=== PATIENT | female | born 1965 | race Caucasian/White ===

== ENCOUNTER 2016-06-07 16:56 | Emergency (ER) | payer OTHER ==
[~2016-06-07] VITALS: Ht 167.6 cm; Wt 118.2 kg
[2016-06-07 17:07] VITALS: BP 196/82; PULSE 70; RESP 16; O2SAT 98
--- NOTE | 2016-06-07 18:05 | ED.REPORT ---
HPI-Headache Date of Service Jun 07, 2016 ED Provider: Isidro Velásquez MD Patient is a 51 year old female w/ a hx of anxiety and HTN who reports to the ED with a constant, right sided headache for the last 2 to 3 months. She noticed when she brushes her hair her "head is very tender." She describes the pain as, "tingly and achy." Associates intermittent nausea. She noticed a similar pain 10 years ago when she had Laser eye surgery. She was going to go to today but they were closed. She reports she checked her symptoms online and became nervous. Pt struggles with anxiety regularly. She takes Atenolol (1x/ day, 25mg). She denies fever, numbness, weakness, chest pain, and jaw pain. She took Ibuprofen [employer] which helped decrease her symptoms slightly, but not significantly. Her blood pressure at the ED is 184/104. Dr. Alondra Johnson is her PCP. Nursing Notes Stated Complaint: HEADACHE/TENDER SCALP Chief Complaint: Headache Nursing Notes Reviewed: Yes Allergies: Coded Allergies: cephalexin (Verified Allergy, Intermediate, sun burn type rash, 06/07/16) erythromycin base (Verified Allergy, Intermediate, sun burn type rash, 06/07) Scheduled Gabapentin (Gabapentin) 300 Mg Capsule 300 MG PO TID General Time Seen by MD: 18:05 Chief Complaint Headache Hx Obtained From: Patient Arrived By: Walk-in Sudden in Onset?: Yes Onset Occurred: More than a week ago... (2 months) Symptom Duration: Since onset Location: : Occipital right Severity: Current: Mild Past Medical History Past Medical History anxiety Reports: Hypertension Past Surgical History Reports: Hysterectomy Smoking History Unknown if Ever Smoker Social History Other Social History: , Local resident Ambulatory Status Independent Review of Systems Review of Systems Note: no jaw claudication Constitutional: Denies: Fever GI: Reports: Nausea Neurologic: Reports: Headache, Denies: Numbness Psychiatric: Reports: Anxiety Complete sys rev & neg: except as marked. Cardiovascular: Denies: Chest pain Physical Exam Physical Exam Notes: blood pressure 184/104 on initial evaluation Initial Vital Signs Vital Signs (First) Date Time Temp Pulse Resp B/P Pulse Ox O2 Delivery O2 Flow Rate FiO2 06/07/16 17:07 36.5 70 16 196/82 98 Room Air Initial VS: Reviewed ENT: Mucous membranes moist, Conjunctiva normal, No scleral icterus Respiratory: Breath sounds normal, Clear to auscultation, No respiratory distress Abdomen / GI: Soft, Non-tender, No guarding, No rebound, No distention Back: No CVA tenderness Lymphatic: No lymphadenopathy Extremities: Vascular intact, Neuro intact, No swelling, No tenderness General/Constitutional: Awake, Alert, No acute distress, Cooperative, Not toxic appearing Head / Eyes: Atraumatic, Normocephalic, PERRL, EOMI, No nystagmus, No periorbital swelling, No photophobia, No scleral icterus, Conjunctiva NL, Temporal arteries NL Neck: Atraumatic, Supple, No meningismus, Full range of motion, No adenopathy, No swelling, Non-tender, No midline vertebral tend Neurologic: Oriented X3, Speech NL, No motor deficits, No sensory deficits, CN II - XII intact, Reflexes equal bilat normal tandem walk external movements intact ENT: Atraumatic, Airway patent, Mucous membranes moist, Pharynx NL, Tympanic membs NL, Ext aud canal NL Skin: Atraumatic, Color NL, No rash Interpretation & Diagnostics Lab Results Interpretation Result Diagram: 06/07/16192706/07/161927 Test 06/07/16 19:28 06/07/16 19:30 White Blood Count 9.7th/mm3 (3.8-10.1) Red Blood Count 4.86mil/mm3 (3.90-5.20) Hemoglobin 14.9g/dL (12.0-15.6) Hematocrit 43.9% (35.0-46.0) Mean Corpuscular Volume 90.3fL (81-100) Mean Corpuscular Hemoglobin 30.7pg (27.0-35.0) Mean Corpuscular Hemoglobin Concent 33.9% (32.0-37.0) Red Cell Distribution Width 12.3% (12.3-15.4) Platelet Count 226bil/L (150-400) Neutrophils (%) (Auto) 63.9% (40-74) Lymphocytes (%) (Auto) 25.4% (14-46) Monocytes (%) (Auto) 7.6% (4-12) Eosinophils (%) (Auto) 2.8% (0-5) Basophils (%) (Auto) 0.2% (0-3) Erythrocyte Sedimentation Rate 17mm/hr (0-32) Sodium Level 136mEq/L (134-144) Potassium Level 3.5mEq/L (3.5-5.2) Chloride Level 97mEq/L (97-108) Carbon Dioxide Level 23mmol/L (18-29) Blood Urea Nitrogen 10mg/dL (6-24) Creatinine 0.59mg/dL (0.57-1.00) Estimat Glomerular Filtration Rate 155mL/min (>59) Glucose Level 122mg/dL (60-99) Calcium Level 9.7mg/dL (8.5-10.1) Total Bilirubin 0.3mg/dL (0.0-1.2) Aspartate Amino Transf (AST/SGOT) 63U/L (0-50) Alanine Aminotransferase (ALT/SGPT) 88U/L (0-32) Alkaline Phosphatase 79U/L (25-150) Troponin T < 0.010ug/L (0.0-0.011) Total Protein 7.2g/dL (6.4-8.4) Albumin 3.9g/dL (3.4-5.0) Hold Garcia Top Tube Received (Received) Hold Urine Received (Received) ECG Interpretation ECG Interpretation: sinus rhythm (rate 70) w/ LVH Time: 19:57 Interpreted by: ED physician CT Head Interpretation IMPRESSION: No acute intracranial abnormalities. Dictated by: Nayan Collins M.D. on 06/07/2016 at 19:10 Approved by: Nayan Collins M.D. on 06/07/2016 at 19:11 Study: Head CT no contrast Interpretation / Wet Read by: Interpret - Radiologist Re-Eval/Medical Decision Med Decision/Clinical Course 51-year-old female with a chief complaint of headache 2 months. This accompanied by some scalp tenderness, suggesting neuropathic pain. The headache itself does not have any alarming features other than her hypertension which do not think is likely to be the cause of the headache given her long-standing headache. Nonetheless we evaluated her for organ damage related to hypertension and none was found. An extra dose of metoprolol tonight successfully brought her blood pressure down. We will empirically try gabapentin for her headache and refer back to primary care. Re-Evaluation/Progress #1: Time of Eval: 20:10 )( Patient Status: Condition unchanged Re-Evaluation/Progress Note: Pt rechecked. Blood pressure has gone down slightly to 154/74 Re-Evaluation/Progress #2: Re-Evaluation/Progress Note: Pt rechecked. No acute findings on CT scan. Plan for discharge with prescription of gabapentin. F/U and RTER warnings given. Pt understands and agrees with plan. Counseled Regarding: Diagnosis, Lab results, Need for follow-up, When/why to return to ED Discharge & Departure Impression: Primary Impression: Headache Headache type: unspecified Headache chronicity pattern: unspecified pattern Intractability: not intractable Qualified Code: R51 - Headache Disposition: Home Discharge Condition All VS Reviewed: Yes Condition: Stable Additional Instructions: Emergency department evaluation today including AV, examination, CT brain labs and ECG. Initial hypertension was noted however this is not felt to be likely to be related to urinary headache symptoms. Treat this with an extra dose of metoprolol, no serious cause for headache is identified. Pressure is improved. We will plan to alter your blood pressure medications today, please check your blood pressures daily anytime while relaxed and resting, and record these for your primary care doctor. You should see her soon for follow-up. With regard to the headache, started gabapentin tomorrow at bedtime. This at bedtime and then if without causing too much grogginess, an additional dose in the morning. If tolerated well, increased to 300 mg 3 times a day the next day. Referrals: Alondra Johnson MD (PCP) Jorge A Attestation Portion of this note were transcribed by Mandy Aguila. I, Dr. Velásquez, personally performed the history, physical exam, and medical decision-making: I reviewed and confirmed the accuracy for the information in the transcribed note. Signed by: jorge a Meyers, 06/07/16 2100 copies to: Alondra Johnson MD, Donald L MD Jun 07, 2016 18:05 Mandy Aguila Jun 07, 2016 18:53
--- NOTE | 2016-06-07 19:13 | DRSVH ---
PROCEDURE: CT BRAIN WITHOUT CONTRAST ([id number]) INDICATIONS: 51-year-old female with hypertension and right-sided headaches. TECHNIQUE: Noncontrast 4.5 mm thick angled axial sections acquired from the foramen magnum to the vertex, with c oronal reformats. COMPARISON: None. FINDINGS: Image quality: Excellent. CSF spaces: Basal cisterns are patent. No extra-axial fluid collections. Ventricles are normal in size and shape. Brain: No midline shift. No intracranial masses or hemorrhage. Brandon-white matter interface is norm al. Skull and face: Calvarium and visualized facial bones are intact, without suspicious lesions. Sinuses: Visualized sinuses and mastoids are clear. IMPRESSION: No acute intracranial abnormalities. Dictated by: Nayan Collins M.D. on 06/07/2016 at 19:10 Approved by: Nayan Collins M.D. on 06/07/2016 at 19:11
[2016-06-07 19:42] VITALS: BP 151/74; RESP 16
[2016-06-07 19:54] LABS: BASOPHILS % (AUTO) 0.2 % (0-3); EOSINOPHILS % (AUTO) 2.8 % (0-5); MONOCYTES % (AUTO) 7.6 % (4-12); Mean Corpuscular Hemoglobin 30.7 pg (27.0-35.0); Mean Corpuscular Volume 90.3 fL (81-100); NEUTROPHILS % (AUTO) 63.9 % (40-74); Platelet Count 226 bil/L (150-400)
[2016-06-07 20:23] LABS: ERYTHROCYTE SEDIMENTATION RATE 17 mm/hr (0-32)
[2016-06-07 20:50] LABS: TROPONIN T < 0.010 ug/L (0.0-0.011)
[2016-06-07 20:58] VITALS: BP 137/81; PULSE 68; RESP 16; O2SAT 98
[2016-06-07] MEDS ORDERED: GABA-502 PO (21:39)
[2016-06-07 21:47] VITALS: BP 137/81; PULSE 68; RESP 16; O2SAT 98
== END 2016-06-07 21:47 | disposition home or self-care (01) ==
LOC: SED 16:56
DX: R51 Headache (principal); I10 Essential (primary) hypertension; Z86.73 Personal history of transient ischemic attack (TIA), and cerebral infarction without residual deficits; Z88.1 Allergy status to other antibiotic agents